=== PATIENT | female | born 1945 | race Caucasian/White ===

== ENCOUNTER 2020-01-03 14:12 | Emergency (ER) | payer OTHER, MEDICAID ==
[~2020-01-03] VITALS: Ht 157.5 cm; Wt 77.1 kg
--- NOTE | 2020-01-03 14:12 | NUR ---
Patient to ER bed 3 to gown for evaluation. Side rails up. Report given to SHANNON Guillaume.
--- NOTE | 2020-01-03 14:15 | NUR ---
Patient presented to ER C/O pain with urination. Patient BIB son, patient A&Ox3, afebrile, skin pink and warm, pain 11/06, denies N/V/D. Patient hx of dementia, parkinsons, DM, recent hospitalization at [facility] discharge 12/29/2019.
[2020-01-03 14:20] VITALS: BP_SYST 145
--- NOTE | 2020-01-03 15:02 | NUR ---
ER Dr. Olmos at bedside examining patient.
--- NOTE | 2020-01-03 15:22 | NUR ---
DR CABRERA SPEAKING WITH DR TOMPKINS (PMD)
[2020-01-03 15:45] VITALS: BP_SYST 141
--- NOTE | 2020-01-03 15:45 | NUR ---
Patient given written and verbal discharge instructions and verbalizes understanding. ER MD discussed with patient the results and treatment provided. Patient in stable condition. ID arm band removed. Rx of Cipro given. Patient educated on pain management and to follow up with PMD. Pain Scale 3/10. Opportunity for questions provided and answered. Medication side effect fact sheet provided.
== END 2020-01-03 15:45 | disposition home or self-care (01) ==
LOC: SED 14:12
DX: N39.0 Urinary tract infection, site not specified (principal); J45.909 Unspecified asthma, uncomplicated; E11.9 Type 2 diabetes mellitus without complications; I10 Essential (primary) hypertension; G20 Parkinson's disease
CPT/HCPCS: 81002; 87086; 99283

== ENCOUNTER 2020-01-03 18:15 | Emergency (ER) | payer OTHER, MEDICAID ==
[~2020-01-03] VITALS: Ht 154.9 cm; Wt 77.1 kg
[2020-01-03 18:15] VITALS: BP_SYST 135
--- NOTE | 2020-01-03 18:15 | NUR ---
Patient triaged and placed in waiting room. VSS and patient appears in no acute distress at this time. Accompanied by FAMILY, awaiting available bed, and MD notified of need for MSE.
[2020-01-03 19:25] LABS: BASOPHILS # (AUTO) 0.1 K/uL (0.0-0.2); BASOPHILS % (AUTO) 1.1 % (0.0-2.0); EOSINOPHILS # (AUTO) 0.4 K/uL (0.0-0.4); EOSINOPHILS % (AUTO) 4.7 % (0.0-4.0); HEMATOCRIT 40.8 % (36-48); HEMOGLOBIN 13.4 g/dL (12.0-16.0); LYMPHOCYTES # (AUTO) 1.8 K/uL (1.0-5.5); LYMPHOCYTES % (AUTO) 21.9 % (20.5-51.5); MEAN CORPUSCULAR HEMOGLOBIN 27 pg (27-31); MEAN CORPUSCULAR HGB CONC 33 % (32-36); MEAN CORPUSCULAR VOLUME 82 fL (79.0-98.0); MONOCYTES # (AUTO) 0.9 K/uL (0.0-1.0); MONOCYTES % (AUTO) 11.2 % (1.7-9.3); NEUTROPHILS # (AUTO) 5.1 K/uL (1.8-7.7); NEUTROPHILS % (AUTO) 61.1 % (40.0-70.0); PLATELET COUNT (AUTO) 290 K/uL (130-430); RED BLOOD CELL COUNT(AUTO) 4.95 MIL/uL (4.2-6.2); RED CELL DISTRIBUTION WIDTH 20.5 % (9.0-15.0); WHITE BLOOD COUNT (AUTO) 8.3 K/uL (4.8-10.8)
[2020-01-03 19:43] LABS: CHOLESTEROL 157 mg/dL (<200); HDL CHOLESTEROL 44 mg/dL (>55); LDL CHOLESTEROL 81 mg/dL (<100); TRIGLYCERIDES 150 mg/dL (30-150)
[2020-01-03 19:46] LABS: ANION GAP 9 (5-15); CALCIUM 9.4 mg/dL (8.4-11.0); CHLORIDE 100 mmol/L (98-107); CREATININE 1.09 mg/dL (0.55-1.30); GLUCOSE 139 mg/dL (70-99); POTASSIUM 4.3 mmol/L (3.5-5.1); SODIUM SERUM 138 mmol/L (136-145); UREA NITROGEN, BLOOD 26 mg/dL (8-21)
--- NOTE | 2020-01-03 19:50 | NUR ---
Patient to ER bed 03 to gown for evaluation. Side rails up.
--- NOTE | 2020-01-03 19:52 | NUR ---
Pt family additionally states that patient has been very agitated and erratic, becoming physically agressive if patients family intervenes.
--- NOTE | 2020-01-03 19:52 | NUR ---
Pt brought in by family for medical clearance prior to being taken to [facility] by family. Pt was seen in ED today for complaints of uti and bizarre behavior leading family to believe that patient is hallucinating. Pt has been agitated and taking food and blankets outside to give to "imaginary" people per family. Family states that there is no other medical complaint at this time. Pt Denies chest pain, nausea, vomiting, diarrhea, sob, chills, fever, cough. Pt denies any other medical complaint at this time. Pt family refuses ambulance transport, desires to transport patient in personal vehicle.
--- NOTE | 2020-01-03 19:52 | NUR ---
ER at bedside examining patient.
[2020-01-03 19:55] LABS: ALANINE AMINOTRANSFERASE 30 U/L (12-78); ALBUMIN 3.7 g/dL (3.4-4.8); ASPARTATE AMINOTRANSFERASE 23 U/L (10-37); TOTAL BILIRUBIN 0.3 mg/dL (0.0-1.0)
[2020-01-03 20:05] LABS: ACETAMINOPHEN < 1 ug/mL (1-30); ALCOHOL, BLOOD < 3 mg/dL (<10)
--- NOTE | 2020-01-03 20:30 | NUR ---
Pt Resting in ED bed comfortably. Family member bedside.
[2020-01-03 21:47] LABS: BILIRUBIN,URINE NEGATIVE (NEGATIVE); BLOOD, URINE NEGATIVE (NEGATIVE); CLARITY/URINE CLEAR (CLEAR); COLOR,URINE YELLOW (YELLOW); GLUCOSE,URINE NEGATIVE (NEGATIVE); KETONES,URINE NEGATIVE (NEGATIVE); LEUKOCYTE ESTERASE ,URINE NEGATIVE (NEGATIVE); NITRITE, URINE NEGATIVE (NEGATIVE); PROTEIN URINE NEGATIVE (NEGATIVE); UROBILINOGEN,URINE 0.2 (0.2-1.0)
[2020-01-03 22:17] LABS: BARBITURATE, URINE NEGATIVE (NEG <=200); BENZODIAZEPINE, URINE POSITIVE (NEG <=150); CANNABINOID, URINE NEGATIVE (NEG <=50); COCAINE, URINE NEGATIVE (NEG <=150); METHAMPHETAMINES SCREEN,URINE NEGATIVE (NEG <=500); OPIATE, URINE NEGATIVE (NEG <=100); PHENCYCLIDINE SCREEN,URINE NEGATIVE (NEG <=25); UR TRICYCLIC ANTIDEPRESSANTS POSITIVE (NEG <=300); URINE AMPHETAMINE NEGATIVE (NEG <=500); URINE METHADONE NEGATIVE (NEG <=200); URINE OXYCODONE SCREEN NEGATIVE (NEG <=100); URINE PROPOXYPHENE SCREEN NEGATIVE (NEG <=300)
--- NOTE | 2020-01-03 22:30 | NUR ---
Pt Medically cleared. To be taken via POV to [facility]. Spoke with Apoorva @ [facility] to OK transfer prior to allowing patient to be transported via POV
--- NOTE | 2020-01-03 23:00 | NUR ---
Pt and family refuse ambulance transport. States that it will cause patient additional distress and agitation.
[2020-01-03 23:50] VITALS: BP_SYST 137
--- NOTE | 2020-01-03 23:50 | NUR ---
Patient and famuily given written and verbal discharge instructions and verbalizes understanding. ER MD discussed with patient and family the results and treatment provided. Patient in stable condition. ID arm band removed. No IV No RX given. Pain Scale 0/10. Opportunity for questions provided and answered. Medication side effect fact sheet provided. Patient to be Taken to [facility] post disharge . Is being transferred due to higher level of care. Receiving facility has accepting physician and available space. ER physician has signed transfer form. Patient or responsible alliance party has agreed to transfer and signed form. Patient belongings inventoried and will be sent with patient. Copy of nursing notes, lab reports, EKG, Physicians Orders and X-rays to be sent with patient. Report called to Apoorva at receiving facility, pt going to room 55B. Receiving physician is [facility]. Pt is being transported via POV. Family Sidney Alvarez contracts for patient safety
== END 2020-01-03 23:50 | disposition home or self-care (01) ==
LOC: SED 18:15
DX: R45.1 Restlessness and agitation (principal); R44.3 Hallucinations, unspecified; J45.909 Unspecified asthma, uncomplicated; I10 Essential (primary) hypertension; E11.9 Type 2 diabetes mellitus without complications; G20 Parkinson's disease; Z88.8 Allergy status to other drugs, medicaments and biological substances
CPT/HCPCS: 36415; 80053; 80061; 80307; 81003; 83036; 83605; 84443; 84484; 85025; 87040; 87086; 93005; 99284; G0480; G0481; G0482